=== PATIENT | female | born 1965 | race Caucasian/White ===

== ENCOUNTER → 2019-05-23 15:51 | Outpatient (BNVA) | payer OTHER, SELFPAY | PROVIDERS: Family Provider Electrodiagnostic Medicine; Referring Provider Electrodiagnostic Medicine; Visit Provider Nurse Practitioner Family | DX: N30.20 Other chronic cystitis without hematuria (principal) | CPT/HCPCS: 80053; 81001 ==

== ENCOUNTER → 2019-07-17 08:37 | Outpatient (BNVA) | payer OTHER, SELFPAY | PROVIDERS: Family Provider Electrodiagnostic Medicine; PCP Electrodiagnostic Medicine; Visit Provider Urology | DX: N30.20 Other chronic cystitis without hematuria (principal) | CPT/HCPCS: 81001 ==

== ENCOUNTER 2019-09-19 13:07 | Outpatient (CLI) | payer OTHER, SELFPAY ==
--- NOTE | 2019-09-19 13:15 | XR_ITS ---
WS: [id number] CHEST 2 VIEWS HISTORY: BRONCHITIS COMPARISON: None available. Lungs: Clear with no abnormality. No pleural effusion or pneumothorax. Cardiac size: Normal. Mediastinum/Aorta: Small calcifications along the RIGHT hilum and paratracheal region. Bones: Normal. XR/XR chest 2V* [id number] IMPRESSION: Benign RIGHT hilar and paratracheal calcified lymph nodes. No pneumonia.
== END 2019-09-19 13:08 | disposition home or self-care (01) ==
LOC: RADWPI 13:14
PROVIDERS: Family Provider Electrodiagnostic Medicine; PCP Electrodiagnostic Medicine; Visit Provider Electrodiagnostic Medicine
DX: J40 Bronchitis, not specified as acute or chronic (principal); I89.8 Other specified noninfective disorders of lymphatic vessels and lymph nodes
CPT/HCPCS: 71046

== ENCOUNTER 2019-11-23 14:18 | Outpatient (CLI) | payer OTHER, SELFPAY ==
--- NOTE | 2019-11-23 14:26 | CT_ITS ---
WS: [id number] CT CHEST TECHNIQUE: Noncontrast CT of the chest with coronal and sagittal reformatted images. CLINICAL INFORMATION: CHRONIC BRONCHITIS COMPARISON: None. DLP: 812.[address] scans at [facility] use at least one of these dose optimization techniques: automat ed exposure control; mA and/or kV adjustment per patient size (includes targeted exams where dose is matched to clinical indication); or iterative reconstruction. FINDINGS: Mild chronic emphysematous changes. No acute pulmonary infiltrates. No focal pneumonia. No pleural fl uid. A few calcified granulomas. Noncalcified 4 mm nodule left lower lobe. Calcified mediastinal and hilar lymph nodes. Calcified subcarinal lymph nodes. Normal caliber thoracic aorta. No axillary lymph adenopathy. Normal GE junction. Adrenal glands are normal. Partially visualized tiny renal parenchymal calculi on the left. Prominent gallstones partially visualized. Splenic granulomas. Normal thoracic spine. CT/CT chest wo con [id number] IMPRESSION: 1. Mild chronic emphysematous changes. No acute pulmonary infiltrates. 2. 4 mm noncalcified nodule left lower lobe. Recommend 12 month follow-up. 3. No mediastinal or hilar lymphadenopathy. 4. Prominent gallstones in the upper abdomen. This can be followed up with ult rasound.
== END 2019-11-23 14:19 | disposition home or self-care (01) ==
LOC: RADWPI 14:21
PROVIDERS: Family Provider Electrodiagnostic Medicine; PCP Electrodiagnostic Medicine; Visit Provider Electrodiagnostic Medicine
DX: J42 Unspecified chronic bronchitis (principal); E55.9 Vitamin D deficiency, unspecified; R60.0 Localized edema; R53.81 Other malaise; R53.83 Other fatigue; K80.80 Other cholelithiasis without obstruction; R91.1 Solitary pulmonary nodule
CPT/HCPCS: 71250

== ENCOUNTER 2020-01-02 12:06 | Outpatient (CLI) | payer OTHER, SELFPAY ==
[2020-01-02 12:39] LABS: Basophils # 0.1 10^3/uL (0.0-0.1); Basophils % 1.1 %; Eosinophils # 0.1 10^3/uL (0.0-0.8); Eosinophils % 1.5 %; Hematocrit 42.8 % (37.0-47.0); Hemoglobin 13.8 g/dL (11.5-15.3); Lymphocytes # 1.8 10^3/uL (0.8-4.8); Lymphocytes % 33.5 %; Mean Corpuscular HGB Conc 32.2 g/dL (30.0-36.0); Mean Corpuscular Hemoglobin 27.6 pg (28.0-34.0); Mean Corpuscular Volume 85.6 fL (81-99); Mean Platelet Volume 10.4 fL (7.4-10.4); Monocytes # 0.4 10^3/uL (0.2-0.9); Monocytes % 6.9 %; Neutrophils # 3.13 10^3/uL (1.8-7.7); Neutrophils % 56.8 %; Nucleated Red Blood Cells % 0 %; Platelet Count 293 10^3/cmm (130-400); White Blood Count 5.5 10^3/uL (4.0-10.0)
[2020-01-02 13:34] LABS: Alanine Aminotransferase 27 U/L (0-33); Albumin Level 4.6 g/dL (3.5-5.2); Alkaline Phosphatase 80 IU/L (35-105); Anion Gap 14.6 (5-19); Aspartate Amino Transferase 16 U/L (0-32); Blood Urea Nitrogen 13 mg/dL (6-20); Calcium 9.6 mg/dL (8.5-10.5); Carbon Dioxide 27 mmol/L (22-29); Chloride 102 mmol/L (98-107); Globulin 2.7 g/dL (1.3-4.6); Glomerular Filtration Rate 104.6 mL/min (90-130); Glucose 84 mg/dL (65-115); NT Pro B Type Natriuretic Pept 49 pg/mL (0-125); Osmolality Calculated 289 mOsm/kg (285-295); Potassium 3.6 mmol/L (3.5-5.1); Sodium 140 mmol/L (136-145); Total Bilirubin 0.3 mg/dL (0.15-1.2); Total Protein 7.3 g/dL (6.6-8.7)
[2020-01-03 16:29] LABS: Alternaria Alternata (M6) Ige <0.10 kU/L; Alternaria Class 0; Bermuda Class 0; Bermuda Grass (G2) Ige <0.10 kU/L; Cat Dander (E1) Ige <0.10 kU/L; Cat Dander Class 0; Common Ragweed (Short) (W1) Ig <0.10 kU/L; D. Farinae Class 0; Dermatophagoides Class 0; Dermatophagoides Farinae (D2) <0.10 kU/L; Dermatophagoides Pteronyssinus <0.10 kU/L; Dog Dander (E5) Ige <0.10 kU/L; Dog Dander Class 0; Elm (T8) Ige <0.10 kU/L; Elm Class 0; English Plantain (W9) Ige <0.10 kU/L; English Plantain Class 0; House Dust (Greer) (H1) Ige <0.10 kU/L; House Dust (Hollister- Stier) <0.10 kU/L; House Dust Class 0; Immunoglobulin E 5 kU/L (<OR=114); Immunoglobulin E 6 kU/L (<OR=114); Johnson Grass (G10) Ige <0.10 kU/L; Johnson Grass Cl 0; June Grass Class 0; June Grass(Kentucky Blue) (G8) <0.10 kU/L; Lamb'S Quarters (Goose Foot) <0.10 kU/L; Lamb'S Quarters Class 0; Maple (Box Elder) (T1) Ige <0.10 kU/L; Maple Class 0; Meadow Fescue (G4) Ige <0.10 kU/L; Meadow Fescue Class 0; Mucor Racemosus Class 0; Oak (T7) Ige <0.10 kU/L; Oak Class 0; Orchard Grass (Cocksfoot) (G3) <0.10 kU/L; Penicillium Class 0; Penicillium Notatum (M1) Ige <0.10 kU/L; Perennial Rye Grass (G5) Ige <0.10 kU/L; Perennial Rye Grass Class 0; Ragweeed Class 0; Rough Marsh Elder (W16) Ige <0.10 kU/L; Rough Marsh Elder Class 0; Sweet Vernal Class 0; Sweet Vernal Grass (G1) Ige <0.10 kU/L; Timothy Grass (G6) Ige <0.10 kU/L; Timothy Grass Class 0
== END 2020-01-02 12:07 | disposition home or self-care (01) ==
PROVIDERS: PCP Electrodiagnostic Medicine; Visit Provider Internal Medicine Pulmonary Disease
DX: R06.02 Shortness of breath (principal)
CPT/HCPCS: 80053; 82785; 83880; 85025; 86003

== ENCOUNTER → 2020-01-19 08:39 | Outpatient (BNVA) | payer OTHER, SELFPAY | PROVIDERS: PCP Electrodiagnostic Medicine; Visit Provider Nurse Practitioner Family | DX: N30.20 Other chronic cystitis without hematuria (principal) | CPT/HCPCS: 81003; 87086 ==

== ENCOUNTER → 2020-01-23 13:34 | Outpatient (BNVA) | payer OTHER, SELFPAY | PROVIDERS: PCP Electrodiagnostic Medicine; Visit Provider Internal Medicine Pulmonary Disease | DX: R06.02 Shortness of breath (principal); Z01.812 Encounter for preprocedural laboratory examination; Z20.828 Contact with and (suspected) exposure to other viral communicable diseases | CPT/HCPCS: 87635 ==

== ENCOUNTER 2020-01-30 10:08 | Outpatient (CLI) | payer OTHER, SELFPAY ==
--- NOTE | 2020-01-30 13:00 | PFTS_ITS ---
Date of Study:01/30/20 Date of Dictation: 01/30/2020 MECHANICS: Forced vital capacity (FVC) is reduced to 67%. Forced expiratory volume in one second (FEV1) is severely reduced to 45% FEV1/FVC is reduced 54 Significant bronchodilator response noted FLOW VOLUME LOOP: Significant scooping of expiratory loop suggestive of small airway obstruction . LUNG VOLUMES: Total lung capacity (TLC) is reduced 78%. Residual volume (RV) is low normal 82%. DIFFUSING CAPACITY FOR CARBON MONOXIDE: Moderately reduced 52% . INTERPRETATION: The PFTs consistent with mixed pattern. Spirometry part consistent with severe obstructive ventilatory defect with significant bronchodilator response. Reduced lung volumes suggestive of coexisting restrictive pattern. Moderately reduced gas transfer. Please correlate clinically MTDD
== END 2020-01-30 10:09 | disposition home or self-care (01) ==
LOC: RT 10:10
PROVIDERS: PCP Electrodiagnostic Medicine; Visit Provider Internal Medicine Pulmonary Disease
DX: R06.02 Shortness of breath (principal); R07.9 Chest pain, unspecified
CPT/HCPCS: 94060; 94726; 94729; J7611

== ENCOUNTER → 2020-02-21 16:10 | Outpatient (BNVA) | payer OTHER, SELFPAY | PROVIDERS: PCP Electrodiagnostic Medicine; Visit Provider Urology | DX: N30.20 Other chronic cystitis without hematuria (principal) | CPT/HCPCS: 81003 ==

== ENCOUNTER → 2020-04-02 15:16 | Outpatient (BNVA) | payer OTHER, SELFPAY | PROVIDERS: PCP Electrodiagnostic Medicine; Visit Provider Urology | DX: N30.20 Other chronic cystitis without hematuria (principal) | CPT/HCPCS: 81003 ==

== ENCOUNTER → 2020-06-04 14:55 | Outpatient (BNVA) | payer OTHER, SELFPAY | PROVIDERS: PCP Electrodiagnostic Medicine; Visit Provider Urology | DX: N30.20 Other chronic cystitis without hematuria (principal) | CPT/HCPCS: 81003 ==

== ENCOUNTER 2020-08-09 13:48 | Outpatient (CLI) | payer OTHER, SELFPAY ==
--- NOTE | 2020-08-09 13:53 | XR_ITS ---
WS: [id number] Chest 2 views, 08/09/2020 Clinical Data: increasing dysnea; rule out pneumonia Comparison: PA and lateral chest, 12/29/2019. Findings: No nodules, masses or effusions are seen. The heart is normal. The pulmonary vascularity is not increased. No pneumonia or pneumothorax is seen. There are granulomatous calcifications adjacent to the right side of the trachea and in the subcarinal area. XR/XR chest 2V* [id number] Impression: Old granulomatous disease.
== END 2020-08-09 13:49 | disposition home or self-care (01) ==
PROVIDERS: PCP Electrodiagnostic Medicine; Visit Provider Internal Medicine Pulmonary Disease
DX: R06.00 Dyspnea, unspecified (principal)
CPT/HCPCS: 71046

== ENCOUNTER → 2020-09-09 16:12 | Outpatient (BNVA) | payer OTHER, SELFPAY | PROVIDERS: PCP Electrodiagnostic Medicine; Visit Provider Nurse Practitioner Family | DX: N30.20 Other chronic cystitis without hematuria (principal); N39.0 Urinary tract infection, site not specified | CPT/HCPCS: 81003; 87086 ==

== ENCOUNTER → 2020-11-04 10:53 | Outpatient (BNVA) | payer OTHER, SELFPAY | PROVIDERS: PCP Electrodiagnostic Medicine; Visit Provider Internal Medicine Pulmonary Disease | DX: Z01.812 Encounter for preprocedural laboratory examination (principal); Z20.822 Contact with and (suspected) exposure to COVID-19 | CPT/HCPCS: 87635 ==

== ENCOUNTER 2020-11-07 07:17 | Outpatient (CLI) | payer OTHER, SELFPAY ==
--- NOTE | 2020-11-07 08:52 | PFTS_ITS ---
Date of Study:11/07/20 Date of Dictation: 11/15/2020 MECHANICS: Pre BD (FVC) is normal 93% 2.89 L . Post BD FVC 94% 2.92 L Pre BD (FEV1) is normal 85% 2.12 L.. But post BD FEV1 reduced-reported 68% 1.70 L FEV1/FVC is normal. FLOW VOLUME LOOP: Mild sloping of expiratory limb suggestive of airway obstruction . LUNG VOLUMES: Total lung capacity (TLC) is normal. Residual volume (RV) is low normal at 80% predicted. DIFFUSING CAPACITY FOR CARBON MONOXIDE: Normal . INTERPRETATION: The pulmonary function tests are essentially normal except for reduced postbronchodilator FEV1 68% despite having normal prebronchodilator FEV1 appears aberrant. When compared to patient's previous pulmonary function tests her TLC improved from mild restriction to normal 90% and gas transfer normalized as well. Please correlate clinically. MTDD
== END 2020-11-07 07:18 | disposition home or self-care (01) ==
LOC: RT 07:19
PROVIDERS: PCP Electrodiagnostic Medicine; Visit Provider Internal Medicine Pulmonary Disease
DX: J43.2 Centrilobular emphysema (principal); J98.4 Other disorders of lung
CPT/HCPCS: 94060; 94726; 94729; J7611

== ENCOUNTER 2020-11-08 10:38 | Outpatient (CLI) | payer OTHER, SELFPAY ==
[2020-11-08 10:53] VITALS: BMI 34.7
--- NOTE | 2020-11-08 10:54 | ECG_ITS ---
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 Baseline heart rate was 83 beats per minute. Baseline blood pressure was 123/73 millimeters of mercury. Target heart rate was 166 beats per minute. Maximum heart rate achieved was 161, which was 96 % of the target heart rate. Maximum blood pressure was 224/82 millimeters of mercury. Total exercise time was 6 minutes 27-seconds. Maximum METs achieved was 10.2, maximum VO2 was 35.7. The reason for ending the test was maximum effort. The patient complained of shortness of breath during the stress test, which then resolved at the end of the test. ELECTROCARDIOGRAM: BASELINE: Showed sinus rhythm, normal axis, no significant ST-T changes at the baseline noted. EXERCISE: At the peak exercise level, no significant ST-T changes suggestive of ischemia noted. RECOVERY: During the recovery period, heart rate dropped appropriately. No significant ST-T changes in the recovery suggestive of ischemia noted. CONCLUSION: 1. Exercise capacity good. 2. Heart rate response was appropriate. 3. Blood pressure response was hypertensive. 4. Symptoms not suggestive of ischemia. 5. Electrocardiogram portion of the stress test was not suggestive of ischemia. 6. Nuclear scan will be documented separately. Electronically Signed On 12-27-2020 18:56:03 MORTGAGE COORDINATOR by RAY OVERTON [id number]
--- NOTE | 2020-11-08 10:55 | USCV_ITS ---
NOTE: Report was unsigned for reason: Order was edited. Original Signature date and time was: 11/09/20 @ 1304 Malena Muñiz Age: 55 Gender: F : 1965 Exam Date: 11/08/2020 11:10 Ordering Phys: Andrew Damon MD Technologist: Exam Location[place] [facility] [place]ication: cp on exertion Rhythm: Sinus Patient History: c pressure Cardiac Medications: Medications in past 24 hours: Contrast: Stress Results Protocol: Sha Total dose(mL): Exercise Duration (min:sec): 6:27 METS: 10.2 Resting HR: 82 Resting BP: 123 / 73 Peak HR: 161 Peak BP: 224 / 82 Max Predicted HR: 166 97 % Max Predicted HR Target HR: 141 Double Product: 88627 Stress Summary: The patient's target heart rate was achieved BP Response: Normal Reason for Termination: Maximal effort/unable to continue Cardiac Symptoms: None ECG Analysis Resting ECG: Stress ECG: Arrhythmia: MEASUREMENTS (Male/Female) Normal Values FINDINGS At rest: Normal left VENTRICULAR EJECTION FRACTION estimated ejection fraction around 55% to 60%. No significant wall motion abnormality at rest noted. At peak exercise: Please note that at peak exercise level heart rate varies from near maximal to submaximal therefore echocardiographic portion of the stress test may not be reliable. At peak exercise level augmentation of cavity was good no new wall motion abnormality noted Recovery: No significant wall motion abnormality noted. CONCLUSIONS Echocardiographic portion of the stress test is negative for ischemia. EKG segment will be documented separately. Silvia Banda MD (Electronically Signed) Final Date: 09 November 2020 13:04 S TRICIA
[2020-11-08 11:37] VITALS: BP 110/78; PULSE 89
== END 2020-11-08 10:39 | disposition home or self-care (01) ==
LOC: CDL 10:39
PROVIDERS: PCP Electrodiagnostic Medicine; Visit Provider Internal Medicine Pulmonary Disease
DX: R07.9 Chest pain, unspecified (principal)
CPT/HCPCS: 93017; 93306; 93350; 93352

== ENCOUNTER 2021-02-19 07:47 | Outpatient (CLI) | payer OTHER, SELFPAY ==
--- NOTE | 2021-02-19 08:02 | XR_ITS ---
WS: [id number] XR KUB [id number] REASON FOR EXAM: NEPHROLITHIASIS/LLQ ABDOMINAL PAIN/L FLANK PAIN FINDINGS: CT scan 03/11/2010 demonstrated sub-2 mm right intrarenal calculus and 3 to 4 mm left intrarenal calcul us. Plain film to 05/28/2010 depicted the left intrarenal calculus. There were no pelvic calcification s at that time. No other urinary tract calculi identifiable. On the current examination: Possibly 2 small intrarenal calculi on the left and one on the right. There is increased density over the transverse process of L4 which may represent a calculus in the mi d and left ureter. There is a calcific density overlying the inferior aspect of the left sacroiliac j oint which likely is bony in nature, related to the SI joint. Multiple calcifications in the pelvis bilaterally which are most likely vascular. XR/XR KUB [id number] IMPRESSION: Possible left mid ureteral calculus as above. This density could be related to the left transverse process of L4, however, there was no density in the left tr ansverse process of L4 on the previous examination.
== END 2021-02-19 07:48 | disposition home or self-care (01) ==
PROVIDERS: PCP Electrodiagnostic Medicine; Visit Provider Electrodiagnostic Medicine
DX: N20.0 Calculus of kidney (principal); R10.32 Left lower quadrant pain; R10.9 Unspecified abdominal pain
CPT/HCPCS: 74018

== ENCOUNTER 2021-03-03 | Outpatient (CLI) | payer OTHER, SELFPAY | END 2021-03-03 00:01 | disposition home or self-care (01) | LOC: RADSHAW 08-05 12:49 | PROVIDERS: PCP Electrodiagnostic Medicine; Visit Provider Electrodiagnostic Medicine | DX: N20.0 Calculus of kidney (principal) | CPT/HCPCS: 81000 ==

== ENCOUNTER 2021-03-10 07:24 | Outpatient (CLI) | payer OTHER, SELFPAY ==
--- NOTE | 2021-03-10 07:35 | XR_ITS ---
WS: [id number] XR abdomen 1V* [id number] REASON FOR EXAM: ABD PAIN LLQ FINDINGS: Bowel gas pattern is unremarkable. No free air or retroperitoneal air. Compared to the previous examination of 02/19/2021, the radiopacity overlying the left transverse proc ess of L4 is no longer identifiable. There is now an additional calcifications seen within the left p jennifer not present on the previous examination. The other region of concern for ureteral calculus appears to be due to sclerosis in marginal osteophy tosis of the left sacroiliac joint. No other significant interval change or new finding. XR/XR abdomen 1V* [id number] IMPRESSION: Presumed migration of mid left ureteral calculus to the region of the left uret eral vesicle junction.
== END 2021-03-10 07:25 | disposition home or self-care (01) ==
LOC: RAD 07:25
PROVIDERS: PCP Electrodiagnostic Medicine; Visit Provider Nurse Practitioner Family
DX: N20.0 Calculus of kidney (principal); R10.32 Left lower quadrant pain
CPT/HCPCS: 74018; 81003

== ENCOUNTER 2021-03-28 11:08 | Outpatient (CLI) | payer OTHER, SELFPAY ==
--- NOTE | 2021-03-28 11:15 | XR_ITS ---
WS: [id number] KUB, AP view, 03/28/2021 Clinical Data: urolithiasis Comparison: KUB, 03/10/2021. Findings: No abnormal intraabdominal masses or calcifications are seen. There is no dilatated small bowel or ev idence of obstruction. There are phleboliths in the true pelvis unchanged. There is a moderate amount of fecal material in t he colon. XR/XR KUB [id number] Impression: Negative KUB.
== END 2021-03-28 11:09 | disposition home or self-care (01) ==
LOC: RAD 11:10
PROVIDERS: PCP Electrodiagnostic Medicine; Visit Provider Urology
DX: N20.9 Urinary calculus, unspecified (principal)
CPT/HCPCS: 74018

== ENCOUNTER 2021-04-04 08:12 | Outpatient (CLI) | payer OTHER, SELFPAY ==
--- NOTE | 2021-04-04 08:00 | CT_ITS ---
WS: [id number] CT ABDOMEN PELVIS TECHNIQUE: Noncontrast CT of the abdomen and pelvis with coronal and sagittal reformatted images. CLINICAL INFORMATION: UROLITHIASIS COMPARISON: CT March 11, 2010 DLP: 1631.[address] scans at [facility] use at least one of these dose optimization techniques: automated e xposure control; mA and/or kV adjustment per patient size (includes targeted exams where dose is matc hed to clinical indication); or iterative reconstruction. FINDINGS: Large gallbladder calculus in the neck of the gallbladder with surrounding soft tissue thickening. Th is measures approximately 2.1 x 2.5 cm with chronic appearing surrounding gallbladder wall thickening . This can be further evaluated with ultrasound. No pericholecystic fluid. Noncontrast liver is rakel l. Splenic granulomas. Adrenal glands are normal. Normal noncontrast pancreas. Small splenule. Small esophageal hiatal hernia. Lung bases are well aerated. Small noncalcified nodule LEFT lower lobe malena uring 3 mm. Nonobstructing bilateral tiny renal parenchymal calculi. Pelvic phleboliths. No hydronephrosis. 4 mm calculus at the LEFT UVJ is new from 2010. No evidence of hydronephrosis in the LEFT kidney. No LEFT ureterectasis. This may be just adjacent to the UVJ orifice. This can be further evaluated with CT ur ogram. Small fat-containing umbilical hernia. Sigmoid diverticulosis. No evidence of acute diverticulitis. N o evidence of high-grade small or large bowel obstruction. Normal appendix in the RIGHT lower quadran t. RIGHT ovarian low-attenuation lesion measuring 4.1 x 2.9 CM. Recommend further evaluation with ult rasound. Normal lumbar spine. Benign bone island L4 vertebral body is unchanged since 2010 CT/CT kidney stone [id number] IMPRESSION: 1. Dense gallbladder calculus in the neck of the gallbladder with surrounding soft tissue thickening. This measures approximately 2.1 CM. Recommend further e valuation with ultrasound. 2. 4 mm calculus at the entrance to the LEFT UVJ although no evidence of urete rectasis or hydronephrosis. This may be adjacent to the UVJ orifice. This can b e further evaluated with CT urogram. 3. No hydronephrosis in either kidney. Tiny nonobstructing renal parenchymal c alculi. 4. RIGHT ovarian cystic lesion measuring 4.1 x 2.9 CM. Recommend follow-up wit h ultrasound. 5. Sigmoid diverticulosis. 6. Small esophageal hiatal hernia. 7. 3 mm noncalcified nodule LEFT lower lobe. Recommend [address] follo w-up.
== END 2021-04-04 08:13 | disposition home or self-care (01) ==
LOC: RAD 08:14
PROVIDERS: PCP Electrodiagnostic Medicine; Visit Provider Urology
DX: N20.9 Urinary calculus, unspecified (principal); R91.1 Solitary pulmonary nodule; K44.9 Diaphragmatic hernia without obstruction or gangrene; K57.30 Diverticulosis of large intestine without perforation or abscess without bleeding; K80.20 Calculus of gallbladder without cholecystitis without obstruction
CPT/HCPCS: 74176; 81003

== ENCOUNTER 2021-06-25 07:19 | Outpatient (CLI) | payer OTHER, SELFPAY ==
--- NOTE | 2021-06-25 07:30 | XR_ITS ---
WS: [id number] KUB, AP view, 06/25/2021 Clinical Data: Urolithiasis Comparison: KUB, 03/28/2021. Findings: No abnormal intraabdominal masses or calcifications are seen. There is no dilatated small bowel or ev idence of obstruction. There is fecal material overlying the right kidney obscuring detail. There are phleboliths in the misha e pelvis. XR/XR KUB [id number] Impression: Negative KUB.
== END 2021-06-25 07:20 | disposition home or self-care (01) ==
LOC: RAD 07:21
PROVIDERS: PCP Electrodiagnostic Medicine; Visit Provider Urology
DX: N20.9 Urinary calculus, unspecified (principal)
CPT/HCPCS: 74018; 81003

== ENCOUNTER 2021-09-18 12:59 | Outpatient (CLI) | payer OTHER, SELFPAY ==
--- NOTE | 2021-09-18 12:45 | XR_ITS ---
WS: [id number] XR KUB [id number] REASON FOR EXAM: UROLITHIASIS FINDINGS: The examination is unchanged compared to 06/25/2021. Small intrarenal calculi identified on the CT scan of 04/04/2021 are not readily identifiable on the c urrent examination. No other urinary tract calculi. XR/XR KUB [id number] IMPRESSION: No urinary tract calculi identified.
== END 2021-09-18 13:00 | disposition home or self-care (01) ==
PROVIDERS: PCP Electrodiagnostic Medicine; Visit Provider Urology
DX: N20.9 Urinary calculus, unspecified (principal); N30.20 Other chronic cystitis without hematuria
CPT/HCPCS: 74018; 81003

== ENCOUNTER → 2022-01-22 16:16 | Outpatient (BNVA) | payer OTHER, SELFPAY | PROVIDERS: PCP Electrodiagnostic Medicine; Visit Provider Urology | DX: N20.9 Urinary calculus, unspecified (principal) | CPT/HCPCS: 81003 ==

== ENCOUNTER 2022-02-12 15:17 | Outpatient (CLI) | payer OTHER, SELFPAY ==
--- NOTE | 2022-02-12 15:23 | MM_ITS ---
WS: [id number] BILATERAL 3D TOMOSYNTHESIS DIGITAL SCREENING MAMMOGRAPHY WITH CAD CLINICAL INFORMATION: SCREENING HISTORY: Screening mammogram. No current complaints. COMPARISON: None. TECHNIQUE: Bilateral CC and MLO views. FINDINGS: Scattered fibroglandular densities bilaterally. No suspicious focal mass, asymmetry, calcifications, or architectural distortion. No evidence of malignancy. MM/[place] [id number] IMPRESSION: BI-RADS: 1-Negative FOLLOW UP: 1 Year Follow-up Recommend return to annual screening mammography.
== END 2022-02-12 15:18 | disposition home or self-care (01) ==
PROVIDERS: PCP Electrodiagnostic Medicine; Visit Provider Electrodiagnostic Medicine
DX: Z12.31 Encounter for screening mammogram for malignant neoplasm of breast (principal)
CPT/HCPCS: 77063; 77067

== ENCOUNTER → 2022-08-28 09:33 | Outpatient (BNVA) | payer OTHER, SELFPAY | PROVIDERS: PCP Electrodiagnostic Medicine; Visit Provider Internal Medicine Pulmonary Disease | DX: J98.4 Other disorders of lung; R91.1 Solitary pulmonary nodule; K21.9 Gastro-esophageal reflux disease without esophagitis; J30.2 Other seasonal allergic rhinitis; R07.89 Other chest pain; N30.20 Other chronic cystitis without hematuria | CPT/HCPCS: 99214 ==

== ENCOUNTER 2022-12-07 20:38 | Emergency (ER) | payer OTHER, SELFPAY ==
[2022-12-07 20:44] VITALS: BP 147/87; PULSE 85; RESP 18; TEMP 36.6; O2SAT 96; BMI 34.7
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
[2022-12-07 21:32] VITALS: BP 118/76; PULSE 76; RESP 18; O2SAT 97
[2022-12-07 21:38] VITALS: BP 118/78; PULSE 76; RESP 18; O2SAT 96
== END 2022-12-07 21:39 | disposition home or self-care (01) ==
PROVIDERS: Emergency Provider Emergency Medicine; PCP Electrodiagnostic Medicine
DX: S60.212A Contusion of left wrist, initial encounter (principal); S20.212A Contusion of left front wall of thorax, initial encounter; V89.2XXA Person injured in unspecified motor-vehicle accident, traffic, initial encounter
CPT/HCPCS: 71045; 73110; 99284

== ENCOUNTER 2023-07-26 14:36 | Outpatient (CLI) | payer OTHER, SELFPAY ==
--- NOTE | 2023-07-26 14:44 | CT_ITS ---
WS: [id number] CT ABDOMEN AND PELVIS WITH AND WITHOUT CONTRAST HISTORY: KIDNEY STONES TECHNIQUE: Unenhanced 3 mm axial imaging first performed through the abdomen. Post contrast imaging through the abdomen and pelvis. Oral contrast has not been provided. Sagittal and coronal reformats are submitted. All CT scans at [facility] use at least one of these dose optimization techniq ues: automated exposure control; mA and/or kV adjustment per patient size (includes targeted exams wh ere dose is matched to clinical indication); or iterative reconstruction. CONTRAST: Omnipaque 350; 95 mL IV. DLP: 3000.84 mGy.cm COMPARISON: 04/04/2021 Lung bases are clear. Heart is normal size. Small hiatal hernia. RIGHT kidney: Normal size. Nonobstructing 2 mm calcification lower pole. No hydronephrosis. No solid or cystic mass. Normal size ureter. LEFT kidney: Normal size kidney. Nonobstructing 2 mm calcification mid kidney. No mass or obstruction . No uroepithelial mass. Normal ureter. Normal size liver. Normal portal vein. Cholelithiasis. There is a significant size stone within the g allbladder lumen which has been previously described. No bile duct dilatation. Normal common bile jeanmarie t size. Normal pancreas. Normal size spleen. No adrenal mass. Mild atherosclerosis aorta. Normal lino ac axis and SMA. No ascites or adenopathy. No GI tract obstruction. Normal appendix. Mild distal colon diverticular di sease without acute diverticulitis. Small umbilical hernia contains fat only. Uterus is midline. RIGHT ovarian cyst 4.4 x 3.1 cm. No destructive bone lesions. No fractures. CT/CT abdomen pelvis wo/w [id number] IMPRESSION: 1. No renal obstruction or solid mass. 2. Bilateral single renal calculi measuring 2 mm. Renal stone burden has decre ased since 04/04/2021. 3. Cholelithiasis. No evidence for acute cholecystitis. 4. No ascites or adenopathy. 5. Mild distal diverticulosis without acute diverticulitis. 6. RIGHT ovarian cyst 4.4 x 3.1 cm.
== END 2023-07-26 14:37 | disposition home or self-care (01) ==
LOC: RAD 14:38
PROVIDERS: PCP Electrodiagnostic Medicine; Visit Provider Urology
DX: N20.0 Calculus of kidney (principal); K80.00 Calculus of gallbladder with acute cholecystitis without obstruction; K80.20 Calculus of gallbladder without cholecystitis without obstruction; K42.9 Umbilical hernia without obstruction or gangrene; N83.291 Other ovarian cyst, right side
CPT/HCPCS: 74178; Q9967

== ENCOUNTER 2023-10-26 14:00 | Outpatient (CLI) | payer OTHER, SELFPAY | END 2023-10-27 07:49 | disposition home or self-care (01) | PROVIDERS: PCP Electrodiagnostic Medicine; Visit Provider Internal Medicine Pulmonary Disease | DX: G47.33 Obstructive sleep apnea (adult) (pediatric) (principal) | CPT/HCPCS: G0399 ==

== ENCOUNTER 2023-12-15 15:04 | Outpatient (CLI) | payer OTHER, SELFPAY ==
--- NOTE | 2023-12-15 15:09 | CTR_ITS ---
PROCEDURE INFORMATION: Exam: CT Abdomen And Pelvis Without Contrast Exam date and time: 12/15/2023 4:01 PM Age: 58 years old Clinical indication: Condition or disease; Kidney or ureter condition; Calculus (stone) in kidney; Additional info: Kidney stones TECHNIQUE: Imaging protocol: Computed tomography of the abdomen and pelvis without contrast. Radiation optimization: All CT scans at this facility use at least one of these dose optimization techniques: automated exposure control; mA and/or kV adjustment per patient size (includes targeted exams where dose is matched to clinical indication); or iterative reconstruction. COMPARISON: 1. CT abdomen pelvis wo/w [id number] 07/26/2023 3:[address] kidney stone [id number] 04/04/2021 8:29 AM RADIATION DOSE METRICS: Total DLP (mGy-cm): 603.63 FINDINGS: Limitations: The absence of intravenous contrast lessens the sensitivity of this study for solid organ abnormalities. Lungs: Dependent density at the lung bases most likely represent some atelectatic changes. Liver: There is no focal abnormality within the liver. Gallbladder and biliary ducts: There is a large calcified gallstone in the gallbladder unchanged from previous. There is no common bile duct dilation. Pancreas: The pancreas is normal. Spleen: The spleen demonstrates punctate calcifications, consistent with remote granulomatous organism exposure. Adrenal glands: The adrenal glands are normal. Kidneys and ureters: There is a 2 mm sized calcification in the lower pole calyx of the right kidney and a 2 mm sized calcification in the middle calyx of the left kidney unchanged compared with 07/26/2023. There is no evidence of hydronephrosis. There is no stone along the course of either ureter. Stomach and bowel: Mild diverticulosis is present in the distal colon. There is no evidence of colitis/diverticulitis. Appendix: A normal appendix is identified. Intraperitoneal space: There is no evidence of free intraperitoneal fluid. Vasculature: No obstructionThe aorta is normal. Lymph nodes: There is no evidence of lymphadenopathy. Urinary bladder: Unremarkable as visualized. Reproductive: 36 x 42 mm right ovarian cyst unchanged from the previous examinations. Bones/joints: There is no evidence of acute fracture. Benign-appearing bone island right side of L4 again identified not significantly changed. Soft tissues: There is a small umbilical hernia containing only fat unchanged. CT/CT kidney stone [id number] IMPRESSION: 1. Bilateral nephrolithiasis 2. Cholelithiasis 3. Right ovarian cyst 4. No acute finding or significant change from 07/26/2023.
== END 2023-12-15 15:05 | disposition home or self-care (01) ==
LOC: RAD 15:07
PROVIDERS: PCP Electrodiagnostic Medicine; Visit Provider Urology
DX: N20.0 Calculus of kidney (principal); K80.20 Calculus of gallbladder without cholecystitis without obstruction; D73.89 Other diseases of spleen; N83.291 Other ovarian cyst, right side
CPT/HCPCS: 74176

== ENCOUNTER 2024-01-11 15:56 | Outpatient (RCR) | payer OTHER, SELFPAY | END 2024-02-08 23:59 | disposition home or self-care (01) | LOC: SPT 15:56 | PROVIDERS: Visit Provider Electrodiagnostic Medicine | DX: R42 Dizziness and giddiness (principal) | CPT/HCPCS: 95992; 97112; 97161 ==

== ENCOUNTER 2024-05-30 12:22 | Outpatient (CLI) | payer OTHER, SELFPAY ==
--- NOTE | 2024-05-30 12:20 | MM_ITS ---
WS: [id number] VIEWS: MLO and CC views both breasts. 3D digital tomosynthesis is also included in this exam. Comparison made with prior exam of 02/12/2022. Findings: There are scattered areas of fibroglandular density. No suspicious mass, tumor calcification or architectural distortion. No new finding. MM/MM scr BI tomosynthesis [id number] Impression: BI-RADS: 2 - Benign FOLLOW-UP: 1 Year Follow-up This mammogram was also analyzed by the Computer Aided Detection System [employer]2 [employer].
== END 2024-05-30 12:23 | disposition home or self-care (01) ==
LOC: MOBLMAM 12:25
PROVIDERS: PCP Electrodiagnostic Medicine; Visit Provider Electrodiagnostic Medicine
DX: Z12.31 Encounter for screening mammogram for malignant neoplasm of breast (principal); R92.323 Mammographic fibroglandular density, bilateral breasts
CPT/HCPCS: 77063; 77067